=== PATIENT | female | born 1965 | race Caucasian/White ===

== ENCOUNTER 2023-02-26 21:20 | Emergency (ER) | payer SELFPAY ==
[2023-02-26] MEDS ORDERED: Ketorolac 30 MG/ML SDV IM ONE (22:19)
== END 2023-02-26 23:47 | disposition home or self-care (01) ==
LOC: FB.ED 21:20
DX: S93.401A Sprain of unspecified ligament of right ankle, initial encounter (principal); S93.601A Unspecified sprain of right foot, initial encounter; F17.210 Nicotine dependence, cigarettes, uncomplicated; Z91.041 Radiographic dye allergy status; Z88.8 Allergy status to other drugs, medicaments and biological substances; Z91.013 Allergy to seafood; X50.1XXA Overexertion from prolonged static or awkward postures, initial encounter
CPT/HCPCS: 73630; 96372; 99283; J1885

== ENCOUNTER 2024-11-14 08:06 | Emergency (ER) | payer MEDICAID | END 2024-11-14 09:15 | disposition home or self-care (01) | LOC: FB.ED 08:06 | DX: M25.562 Pain in left knee (principal); Z91.041 Radiographic dye allergy status; Z88.8 Allergy status to other drugs, medicaments and biological substances | CPT/HCPCS: 73562-LT; 99283 ==